=== PATIENT | male | born 1975 | race Caucasian/White ===

== ENCOUNTER 2020-07-08 20:22 | Emergency (ER) | payer SELFPAY ==
[~2020-07-08] VITALS: Ht 167 cm; Wt 158.0 kg
--- NOTE | 2020-07-08 20:40 | ED General ---
General Stated Complaint: RIB INJURY Source of Information: Patient Exam Limitations: No Limitations History of Present Illness Date Seen by Provider: Jul 08, 2020 Time Seen by Provider: 20:38 Initial Comments To ER with reports of a left lateral rib injury. He saw Neal Brower [facility] had a portable chest x-ray done showing what appeared to be a left pleural effusion. Patient fell one week ago landing on the left side, pain has all but resolved but today he noticed some shortness of breath. No fevers. He does have a smoker's cough that is no different than baseline. He smokes 1-2 packs of cigarettes per day. Timing/Duration: 1-2 Days Severity: Moderate Associated Systoms: No Chest Pain; Cough; No Fever/Chills; Shortness of Air Allergies and Home Medications Allergies Coded Allergies: No Known Drug Allergies (Unverified , 07/08/20) Home Medications Hydrocodone/Acetaminophen 1 Each Tablet, 1 EACH PO Q4-6HR PRN for PAIN-MODERATE Prescribed by: RAZIA QUIROS on 07/08/20 0831 Patient Home Medication List Home Medication List Reviewed: Yes Review of Systems Review of Systems Constitutional: see HPI EENTM: see HPI Respiratory: see HPI, cough, short of breath Cardiovascular: no symptoms reported Genitourinary: no symptoms reported Musculoskeletal: no symptoms reported Skin: no symptoms reported Psychiatric/Neurological: No Symptoms Reported Hematologic/Lymphatic: No Symptoms Reported Immunological/Allergic: no symptoms reported Past Oznhrnw-Soxgdw-Fvslvm Hx Patient Social History Recent Foreign Travel: No Contact w/Someone Who Travel: No Physical Exam Vital Signs Vital Signs - First Documented 07/08/20 07/08/20 20:30 22:47 Temp 36.0 Pulse 109 Resp 20 B/P (MAP) 157/96 (116) Pulse Ox 95 O2 Delivery Room Air Capillary Refill : Height, Weight, BMI Height: '" Weight: lbs. oz. kg; BMI Method: General Appearance: No Apparent Distress, WD/WN Eyes: Bilateral Eye Normal Inspection, Bilateral Eye PERRL, Bilateral Eye EOMI HEENT: PERRL/EOMI, TMs Normal Respiratory: No Accessory Muscle Use, No Respiratory Distress, Other (crackles left base) Cardiovascular: Regular Rate, Rhythm, Normal Peripheral Pulses Gastrointestinal: Normal Bowel Sounds, Non Tender, Soft Extremity: Normal Capillary Refill, Normal Inspection Neurologic/Psychiatric: Alert, Oriented x3 Skin: Normal Color, Warm/Dry Progress/Results/Core Measures Suspected Sepsis SIRS Temperature: Pulse: Respiratory Rate: Laboratory Tests 07/08/20 20:35: White Blood Count 10.1 Blood Pressure / Mean: Laboratory Tests 07/08/20 20:35: Creatinine 0.90, Platelet Count 409H, Total Bilirubin 0.3 Results/Orders Lab Results My Orders Medications Given in ED Vital Signs/I&O Capillary Refill : Diagnostic Imaging Diagonstic Imaging: CT Comments NAME: [facility] REC#: [id number] PT STATUS: REG ER : 1975 PHYSICIAN: RAZIA QUIROS APRN ADMIT DATE: 07/08/20/ER Draft Date of Exam:07/08/20 CT ANGIO CHEST W PROCEDURE: CT angiography of the chest with contrast. TECHNIQUE: Multiple contiguous axial images were obtained through the chest after uneventful bolus administration of intravenous contrast. 3D reconstructed CTA MIP acquisitions were also performed. Auto Exposure Controls were utilized during the CT exam to meet ALARA standards for radiation dose reduction. DATE: July 08, 2020. COMPARISON: None. INDICATION: 44-year-old male, fall one week ago. Chest pain and shortness of breath. FINDINGS: There is no identified pulmonary nodule. There is no lung mass. The right lung is clear. There is a large left pleural effusion. There is enhancing consolidation in the left lower lobe with volume loss consistent with atelectasis. There are mild linear opacities in the left upper lobe consistent with atelectasis. There is no identified pneumothorax. There is no identified pulmonary embolus. The heart is not enlarged. There is no pericardial effusion. There is no identified mediastinal hematoma. The patient is status post cholecystectomy. There is a mildly displaced left sixth rib fracture on axial image 75. There is no additional identified fracture. IMPRESSION: CT CHEST. 1. Mild displaced left sixth rib fracture. 2. Large left pleural effusion with atelectasis in the left lower lobe and left upper lobe. 3. No identified pneumothorax. Dictated on workstation # [id number] Dict: 07/08/202109 Trans: 07/08/202119 [id number] Interpreted by: ELISA CARBONE MD Electronically signed by: Departure Communication (Admissions) Dr. Higginbotham here, consistent filled out for left-sided thoracentesis. We were unable to aspirate any fluid, perhaps too thick. Impression Primary Impression: Fracture of rib Additional Impression: Hemothorax Disposition: HOME, SELF-CARE Condition: Stable Departure-Patient Inst. Decision time for Depature: 22:07 Referrals: JUDY HIGGINBOTHAM DO Patient Instructions: Blunt Chest Trauma (DC) Add. Discharge Instructions: 1. Follow up with Dr Higginbotham. Call saturday for an appointment to be seen. Return to ER for any concerns 2. Scripts Hydrocodone/Acetaminophen (Lorcet 5-325 mg Tablet) 1 Each Tablet 1 EACH PO Q4-6HR PRN for PAIN-MODERATE MDD 10 for 7 Days, #10 TAB Prov: RAZIA QUIROS APRN 07/08/20 RAZIA QUIROS APRN Jul 08, 2020 20:40
[2020-07-08] MEDS ORDERED: RT-ALBUTEROL/IPRATROPIUM 3 ML (DUONEB) VIAL INH ONE (20:45)
[2020-07-08 20:47] LABS: BASOPHILS % (AUTO) 0 % (0-10); EOSINOPHILS # (AUTO) 1.1 10^3/uL (0.0-0.3); EOSINOPHILS % (AUTO) 11 % (0-10); HEMATOCRIT 41 % (40-54); HEMOGLOBIN 13.6 G/DL (13.3-17.7); LYMPHOCYTES # (AUTO) 2.4 X 10^3 (1.0-4.0); LYMPHOCYTES % (AUTO) 24 % (12-44); MEAN CORPUSCULAR HEMOGLOBIN 29 PG (25-34); MEAN CORPUSCULAR HGB CONC 33 G/DL (32-36); MEAN CORPUSCULAR VOLUME 88 FL (80-99); MEAN PLATELET VOLUME 9.7 FL (7.4-10.4); MONOCYTES # (AUTO) 0.5 X 10^3 (0.0-1.0); MONOCYTES % (AUTO) 5 % (0-12); NEUTROPHILS % (AUTO) 59 % (42-75); PLATELET COUNT 409 10^3/uL (130-400); WHITE BLOOD COUNT 10.1 10^3/uL (4.3-11.0)
[2020-07-08 21:02] LABS: ALBUMIN 3.9 GM/DL (3.2-4.5); CHLORIDE 102 MMOL/L (98-107); POTASSIUM 4.2 MMOL/L (3.6-5.0); SODIUM 139 MMOL/L (135-145)
[2020-07-08 21:03] LABS: CALCIUM 8.9 MG/DL (8.5-10.1)
[2020-07-08 21:04] LABS: GLUCOSE 164 MG/DL (70-105); TOTAL PROTEIN 7.3 GM/DL (6.4-8.2)
[2020-07-08 21:05] LABS: CARBON DIOXIDE 26 MMOL/L (21-32)
[2020-07-08 21:06] LABS: BILIRUBIN,TOTAL 0.3 MG/DL (0.1-1.0)
[2020-07-08 21:08] LABS: ALKALINE PHOSPHATASE 96 U/L (40-136); GFR ESTIMATED > 60
[2020-07-08 21:09] LABS: BUN/CREATININE RATIO 12
[2020-07-08 21:11] LABS: ALANINE AMINOTRANSFERASE 29 U/L (0-55)
[2020-07-08] MEDS ORDERED: NS 100 ML (IVPB) BAG IV ONE (21:15)
[2020-07-08] MEDS ORDERED: IOHEXOL 350 MG/ML 100 ML (OMNIPAQUE 350) VIAL IV ONE (21:15)
--- NOTE | 2020-07-08 21:20 | Diagnostic Imaging Report ---
PROCEDURE: CT angiography of the chest with contrast. TECHNIQUE: Multiple contiguous axial images were obtained through the chest after uneventful bolus administration of intravenous contrast. 3D reconstructed CTA MIP acquisitions were also performed. Auto Exposure Controls were utilized during the CT exam to meet ALARA standards for radiation dose reduction. DATE: July 08, 2020. COMPARISON: None. INDICATION: 44-year-old male, fall one week ago. Chest pain and shortness of breath. FINDINGS: There is no identified pulmonary nodule. There is no lung mass. The right lung is clear. There is a large left pleural effusion. There is enhancing consolidation in the left lower lobe with volume loss consistent with atelectasis. There are mild linear opacities in the left upper lobe consistent with atelectasis. There is no identified pneumothorax. There is no identified pulmonary embolus. The heart is not enlarged. There is no pericardial effusion. There is no identified mediastinal hematoma. The patient is status post cholecystectomy. There is a mildly displaced left sixth rib fracture on axial image 75. There is no additional identified fracture. IMPRESSION: CT CHEST. 1. Mild displaced left sixth rib fracture. 2. Large left pleural effusion with atelectasis in the left lower lobe and left upper lobe. 3. No identified pneumothorax. Dictated by: Dictated on workstation # [id number]
--- NOTE | 2020-07-08 21:50 | NUR ---
DR. HIGGINBOTHAM HERE TO PERFORM LEFT THORACENTESIS. CONSENT SIGNED BY PATIENT.
[2020-07-08] MEDS ORDERED: HYDR-3870 PO (22:45)
[2020-07-08 22:47] VITALS: BP 148/92
[2020-07-08] MEDS ORDERED: RX-HYDROCODONE/APAP 5/325 MG #4 TAB PK PO PRN (23:00)
--- NOTE | 2020-07-08 23:43 | Consultation - Surgery ---
History of Present Illness History of Present Illness Patient Consulted On(tonja/time) 07/08/20 23:38 Date Seen by Provider: Jul 08, 2020 Time Seen by Provider: 21:00 History of Present Illness Consult requested by Razia Quiros for left pleural effusion. Seen and evaluated in ED Patient is a 44 year old male that fell hitting left chest about 1 week ago. Had some pain along left chest but minimal. Has been fine otherwise he states. Had slight shortness of breath. Got chest x ray at outside facility and found to have left pleural effusion and was told to go to er. Patient has chronic cough which is at baseline. Quit smoking 2 days ago but before 1-2 packs per day. Patient no other complaints denies n/v fever sweats chills shortness of breath or chest pain. CTA chest peformed showing large left pleural effusion no pneumothorax, left 6th rib fx minimally displaced. Allergies and Home Medications Allergies Coded Allergies: No Known Drug Allergies (Unverified , 07/08/20) Home Medications Hydrocodone/Acetaminophen 1 Each Tablet, 1 EACH PO Q4-6HR PRN for PAIN-MODERATE Prescribed by: RAZIA QUIROS on 07/08/20 5099 Patient Home Medication List Home Medication List Reviewed: Yes Past Uyrgrtg-Soener-Mifhzq Hx Patient Social History Alcohol Use: Denies Use Recreational Drug Use: Yes Drug of Choice: MARIJUANA Smoking Status: Current Everyday Smoker Recent Foreign Travel: No Contact w/Someone Who Travel: No Recent Infectious Disease Expo: No Recent Hopitalizations: No Surgeries History of Surgeries: Yes Surgeries: Gallbladder Respiratory History of Respiratory Disorde: No Cardiovascular History of Cardiac Disorders: No Neurological History of Neurological Disord: No Genitourinary History of Genitourinary Disor: No Gastrointestinal History of Gastrointestinal Di: No Musculoskeletal History of Musculoskeletal Dis: No Endocrine History of Endocrine Disorders: No HEENT History of HEENT Disorders: No Cancer History of Cancer: No Psychosocial History of Psychiatric Problem: No Integumentary History of Skin or Integumenta: No Reviewed Nursing Assessment Reviewed/Agree w Nursing PMH: Yes Family Medical History Significant Family History: No Pertinent Family Hx Review of Systems-General Constitutional: No fever EENTM: No hearing loss, No double vision Respiratory: cough (chronic), short of breath Cardiovascular: chest pain (minimal left chest wall); No edema Gastrointestinal: No abdominal pain, No nausea, No vomiting Genitourinary: No decreased output, No discharge Musculoskeletal: No back pain, No joint pain Skin: No change in color, No change in hair/nails Psychiatric/Neurological: Denies Anxiety, Denies Depressed, Denies Emotional Problems All Other Systems Reviewed Negative Unless Noted: Yes (Negative excepted noted.) Physical Exam-General Problems Physical Exam Vital Signs Vital Signs - First Documented 07/08/20 07/08/20 20:30 22:47 Temp 36.0 Pulse 109 Resp 20 B/P (MAP) 157/96 (116) Pulse Ox 95 O2 Delivery Room Air Capillary Refill : Less Than 3 Seconds General Appearance: WD/WN, no apparent distress, obese HEENT: PERRL/EOMI, TMs normal Neck: non-tender, supple Respiratory: chest non-tender, no respiratory distress, no accessory muscle use Cardiovascular: regular rate, rhythm, no JVD Gastrointestinal: non tender, soft, no organomegaly Rectal: deferred Back: normal inspection, no CVA tenderness, no vertebral tenderness Extremities: non-tender, normal inspection Neurologic/Psychiatric: alert, normal mood/affect, oriented x 3 Skin: normal color, warm/dry Lymphatic: no adenopathy Comments minimal left chest wall tenderness with palpation Data Review Labs Laboratory Tests 07/08/20 20:35: White Blood Count 10.1, Red Blood Count 4.68, Hemoglobin 13.6, Hematocrit 41, Mean Corpuscular Volume 88, Mean Corpuscular Hemoglobin 29, Mean Corpuscular Hemoglobin Concent 33, Red Cell Distribution Width 15.0H, Platelet Count 409H, Mean Platelet Volume 9.7, Neutrophils (%) (Auto) 59, Lymphocytes (%) (Auto) 24, Monocytes (%) (Auto) 5, Eosinophils (%) (Auto) 11H, Basophils (%) (Auto) 0, Neutrophils # (Auto) 6.0, Lymphocytes # (Auto) 2.4, Monocytes # (Auto) 0.5, Eosinophils # (Auto) 1.1H, Basophils # (Auto) 0.0, Sodium Level 139, Potassium Level 4.2, Chloride Level 102, Carbon Dioxide Level 26, Anion Gap 11, Blood Urea Nitrogen 11, Creatinine 0.90, Estimat Glomerular Filtration Rate > 60, BUN/Creatinine Ratio 12, Glucose Level 164H, Calcium Level 8.9, Corrected Calcium 9.0, Total Bilirubin 0.3, Aspartate Amino Transf (AST/SGOT) 18, Alanine Aminotransferase (ALT/SGPT) 29, Alkaline Phosphatase 96, B-Type Natriuretic Peptide < 10.0, Total Protein 7.3, Albumin 3.9 Assessment/Plan Assessment/Plan Assessment/Plan fall 1 week ago left 6th rib fx left pleural effusion patient discussed radiological findings of left pleural effusion we discussed risks and benefits of left thoracentesis which he understands and wishes to proceed. we discussed this could remove the fluid, also discussed potentially not able to remove fluid if it was clot, and discussed possible injury to structures in chest he understood all risks and benefits and wished to proceed. Thoracentesis performed and only scant amount of blood returned and felt that this was due to clot patient does not want to be in the hospital and wants to go home, we discussed plan if any change in his condition and i also discussed it with his girlfriend over the phone when he called her. chest x ray after thoracentesis Patient wishes to follow up with Dr. Charly Cody on Saturday, He can follow up with myself as well if he wishes. JUDY HIGGINBOTHAM DO Jul 08, 2020 23:43
--- NOTE | 2020-07-09 06:38 | OPERATIVE REPORT ---
DATE OF SERVICE: 07/08/2020 PREOPERATIVE DIAGNOSIS: Left pleural effusion. POSTOPERATIVE DIAGNOSIS: Left chest clot within the chest cavity. PROCEDURE: Ultrasound-guided left thoracentesis. SURGEON: Judy Grimes DO ANESTHESIA: 1% lidocaine 4 mL. COMPLICATIONS: None. INDICATIONS: The patient is a 44-year-old male who had a fall one week ago. Had chest x-ray and CT scan consistent with left pleural effusion. He was having a very minimal shortness of air symptoms and had an outpatient chest x-ray, which sent him to the Emergency Department where he was further evaluated. We discussed risks and benefits of procedure and he wished to proceed. Consent was signed in the chart. PROCEDURE: The patient was in sitting position. Ultrasound was used to isolate the best pocket for catheter insertion. The area was prepped and draped in sterile fashion. Timeout was performed. Local anesthetic was infiltrated and 11 blade scalpel was used to make a small skin incision and the [id number] needle and catheter were then advanced through the chest wall. There are very minimal amount of fluid in the syringe back and the catheter was then advanced. The fluid was slightly bloody consistent with clot. The needle was removed. Catheter was then turned to be drained; however, no fluid was able to be drained. The catheter was removed. The patient tolerated procedure well without any complications. Chest x-ray pending. RECOMMENDATIONS: The patient coughed should liquify and partially may still need to be drained. He declined admission for further observation. He would like to have outpatient followup. Will follow up with Dr. Lauren Cody on Saturday in his hometown. He was also advised he can follow up with myself as well. Job ID: [id number] DocumentID: [id number] Dictated Date: 07/08/2020 23:54:23 Draw Off Worker Date: 07/09/2020 06:38:31 Dictated By: JUDY GRIMES DO
--- NOTE | 2020-07-09 07:47 | Diagnostic Imaging Report ---
Indication: Dyspnea, followup thoracentesis. Comparison: None. Discussion: Single portable upright view of the chest was obtained. Exam is very limited due to patient body habitus. Marked cardiomegaly is noted. Bilateral mixed interstitial and alveolar infiltrates are suggestive of pulmonary edema, less likely pneumonia. No pleural fluid or pneumothorax on the right. The left lung base is obscured which could be due to underlying cardiomegaly though pneumonia or pleural fluid on the left is not excluded. No osseous abnormality. Impression: 1. Cardiomegaly with bilateral infiltrates. 2. The left lung base is completely obscured. Underlying pneumonia or effusion may be present. Dictated by: Dictated on workstation # [id number]
== END 2020-07-08 22:47 | disposition home or self-care (01) ==
LOC: ER 20:26
DX: S22.32XA Fracture of one rib, left side, initial encounter for closed fracture (principal); S27.1XXA Traumatic hemothorax, initial encounter; F17.210 Nicotine dependence, cigarettes, uncomplicated; W19.XXXA Unspecified fall, initial encounter
CPT/HCPCS: 36415; 71045; 71275; 80053; 83880; 85025